=== PATIENT | male | born 1980 | race Caucasian/White ===

== ENCOUNTER 2019-11-29 06:19 | Day surgery (SDC) | payer OTHER ==
[~2019-11-29] VITALS: Ht 182.9 cm; Wt 99.8 kg
[2019-11-29 06:59] LABS: HEMATOCRIT 42.7 % (42.0-54.0); HEMOGLOBIN 13.8 g/dL (13.5-17.5); MCH 28.2 pg (26.0-34.0); MCHC 32.3 g/dL (31.0-37.0); MCV 87.1 fL (80.0-100.0); MEAN PLATELET VOLUME 11.9 fL (7.4-10.4); RBC 4.9 10x6/uL (4.20-6.10); RDW 14.8 % (11.5-14.5); WBC 10.5 10x3/uL (4.8-10.8)
[2019-11-29 07:21] LABS: CALC OSMOLALITY 277 mosm/kg (275-300); CALCIUM 8.6 mg/dL (8.5-10.1); CHLORIDE - SERUM 101 mmol/L (98-107); CREATININE - SERUM 1.1 mg/dL (0.6-1.3); GLUCOSE 109 mg/dL (74-106); POTASSIUM - SERUM 3.3 mmol/L (3.5-5.1); SODIUM 139 mmol/L (136-145); UREA NITROGEN 9 mg/dL (7-18); eGFR NON AFRICAN AMERICAN 79 mL/min (90-120)
[2019-11-29 10:01] VITALS: BP 125/64; Ht 182.9 cm; Wt 99.8 kg
[2019-11-29] MEDS ORDERED: LISINOPRIL20 MG PO (10:15)
[2019-11-29] MEDS ORDERED: BACLOFEN20 M1 PO ×2 (10:15→10:17)
[2019-11-29] MEDS ORDERED: BACLOFEN20 M1 (10:16)
[2019-11-29] MEDS ORDERED: CELEXA40 MG PO (10:17)
[2019-11-29] MEDS ORDERED: KEPPRA500 MG PO (10:18)
[2019-11-29] MEDS ORDERED: HYDROCHLOROTHIA25 MG PO (10:18)
[2019-11-29] MEDS ORDERED: OMEPRAZOLE40 MG PO (10:19)
--- NOTE | 2019-11-29 16:14 | NUR ---
1446 PT REQUESTING PAIN MEDICATION FOR ACHING SENSATION IN RIGHT ANKLE. RATES PAIN A 4 OUT OF 10. 1529 PAIN LEVEL HAS DECREASED TO 3 OUT OF 5. 1550 IV DC'D. CATHETER TIP INTACT. NO BLEEDING AT SITE. BANDAID APPLIED.
--- NOTE | 2019-12-03 06:17 | OP ---
PATIENT NAME: AILYN ABEBE MEDICAL RECORD: [id number] :82 LOCATION:[facility] ADMISSION DATE: SURGEON: GIOVANNY ALEXANDER DO DATE OF OPERATION: 11/29/2019 PROCEDURE PERFORMED: Right distal fibula open reduction and internal fixation with syndesmotic fixation. PREOPERATIVE DIAGNOSIS: Right displaced distal fibular fracture with syndesmotic disruption. POSTOPERATIVE DIAGNOSIS: Right displaced distal fibular fracture with syndesmotic disruption. INDICATIONS: Mr. Abebe is a 39-year-old inmate who sustained a right ankle fracture several weeks ago. He was seen in my office and x-rays were taken and seen to have medial clear space widening without a stress view and the distal fibula fracture, which was minimally displaced. I informed we need to fix that and certainly get some fixation to hope that syndesmosis together should heal and I put a plate on the distal fibula due to the fact it is fractured. He is okay with that. He is aware of the risks including infection, bleeding, malunion, nonunion, continued pain, inability to bear weight, blood clots, and even . The patient signed the consent. SURGEON: Giovanny Alexander DO DESCRIPTION OF PROCEDURE: The patient received 2 grams Ancef preoperatively and was given a block per anesthesia in the preoperative area, taken to the operative suite, laid in supine position, given general anesthetic, and LMA was placed. The right lower extremity was then prepped and draped in sterile fashion. A timeout was performed and everyone was in agreement with the correct site, side, patient, procedure. I then began by exsanguinating the right lower extremity, tourniquet was inflated to 350 mmHg, was up for 24 minutes. The C-arm was then brought in, I did a stress view of the ankle and had clearly more than 5 mm of medial clear space widening. I then made an incision over the lateral ankle, the distal fibula and got the plate positioned. Once this was positioned well, I put 2 screws in the shaft and then 4 locking screws distally and then put a syndesmotic ZipTight across the ankle joint after clamping the ankle together with a big clamp and with the ankle dorsiflexed and cinched these, tied down, then stressed it, did not have any medial clear space widening after that. We then took AP and lateral as well. Everything was in good position. I then put the tourniquet down. Any bleeding was coagulated with a pickup and a Bovie. It was then closed by Basil Tirado, animal assisted therapist student, and Ramón Cordova, certified operating room surgical technician, with 2-0 Vicryl in inverted interrupted fashion, ZipLine placed on the incision, dressed with Adaptic, 4 x 4s, ABD, Webril, Tal wrap and a 4 x 30 splint placed posteriorly and secured with 6-inch Tal wrap. He was then awakened and taken to recovery in stable condition. BLOOD LOSS: Minimal. COMPLICATIONS: None. TRANSINT:[id number] Voice Confirmation ID: [id number] DOCUMENT ID: [id number] OPERATIVE REPORT [id number] AILYN ABEBE MICHAEL D, DO at 0617 CC: [id number] DICTATION DATE: 11/29/19 1323 [address] FIRER: 11/29/19 2222 [facility] 11/29/[address] [facility] [address] [place] [address]
== END 2019-11-29 16:02 | disposition home or self-care (01) ==
LOC: D.OPS 06:19 → D.PAN 10:45 → D.OPS 13:15 → D.PAN 13:15 → D.OPS 16:02
PROVIDERS: Anesthesiology; ATTEND Orthopaedic Surgery
DX: S82.891A Other fracture of right lower leg, initial encounter for closed fracture (principal); X58.XXXA Exposure to other specified factors, initial encounter